=== PATIENT | female | born 1965 | race African-American/Black ===

== ENCOUNTER 2022-10-10 16:33 | Emergency (ER) | payer MEDICAID ==
[~2022-10-10] VITALS: Ht 172.7 cm; Wt 95.0 kg
[2022-10-10] MEDS ORDERED: KETOROLAC 60MG/2ML VIAL IM ONE (17:15)
[2022-10-10 17:33] VITALS: BP 140/82
[2022-10-10] MEDS ORDERED: IBUP-2029 MT (20:38)
[2022-10-10] MEDS ORDERED: CYCL10TA21 MT (20:38)
== END 2022-10-10 20:54 | disposition home or self-care (01) ==
LOC: ER 16:33
DX: S10.93XA Contusion of unspecified part of neck, initial encounter (principal); I10 Essential (primary) hypertension; V49.49XA Driver injured in collision with other motor vehicles in traffic accident, initial encounter; Y93.89 Activity, other specified; Y92.89 Other specified places as the place of occurrence of the external cause; Y99.8 Other external cause status
CPT/HCPCS: 72125; 96372; 99285; J1885